=== PATIENT | female | born 1970 | race Caucasian/White ===

== ENCOUNTER → 2020-01-04 14:48 | Outpatient (CLI) | payer OTHER, SELFPAY ==
--- NOTE | ~2020-01-04 | MM_ITS ---
EXAMINATION: MM screening dilia BI w bety HISTORY: Screening mammogram TECHNIQUE: Craniocaudal and mediolateral oblique 3-D tomosynthesis images were obtained and synthetic 2-D images were generated. CAD analysis was submitted and interpreted. COMPARISON: 10/02/2018, 08/19/2017, 09/13/2015 bilateral digital screening mammogram examinations BREAST PARENCHYMAL COMPOSITION: There are scattered areas of fibroglandular density. FINDINGS: There is no evidence of suspicious mass, calcification, or architectural distortion to sugg est malignancy in either breast. There has been no suspicious interval change. IMPRESSION: 1. No mammographic evidence of malignancy. 2. Recommend routine screening mammography in one year. BI-RADS Category 1: Negative Reviewed, dictated and finalized at location A.
== END ==
PROVIDERS: PCP Internal Medicine; Visit Provider Advanced Practice Midwife
DX: Z12.31 Encounter for screening mammogram for malignant neoplasm of breast (principal)
CPT/HCPCS: 77063; 77067

== ENCOUNTER 2020-04-26 03:09 | Outpatient (CLI) | payer OTHER, SELFPAY ==
[2020-04-26 19:22] LABS: SARS-CoV-2 RNA PCR Negative
== END 2020-04-26 03:10 | disposition home or self-care (01) ==
LOC: ANHCOVIDDT 03:09
PROVIDERS: PCP Internal Medicine; Visit Provider Internal Medicine Gastroenterology
DX: Z01.812 Encounter for preprocedural laboratory examination (principal); Z20.822 Contact with and (suspected) exposure to COVID-19
CPT/HCPCS: C9803; U0003; U0005

== ENCOUNTER 2020-04-29 02:35 | Day surgery (SDC) | payer OTHER, SELFPAY ==
[2020-04-21 14:09] VITALS: BMI 29.2
[2020-04-29 09:04] VITALS: BP 146/87; PULSE 107; RESP 18; TEMP 36.7; O2SAT 96
[2020-04-29] MEDS: LACTATED RINGERS 1,000 ML 150 ML IV CONT (09:21)
--- NOTE | 2020-04-29 10:09 | PM.HPGS ---
History of Present Illness History of Present Illness Consent: Risks, benefits, and alternatives have been discussed and questions answered. Patient agrees to proceed with procedure. Chief complaint: Neoplasm Screening Narrative: Alexus Mensah is a 50 year old female here for screening colonoscopy, last one 10 years ago after had diverticulitis. Review of Systems Constitutional: Constitutional: Denies headache(s) and Denies weakness Eyes: Eyes: Denies blurry vision ENT: Reports Normal hearing present, Denies headache(s) and Denies neck pain Cardiovascular: Cardiovascular: Denies chest pain and Denies dyspnea Respiratory: Respiratory: Denies dyspnea Gastrointestinal: Gastrointestinal: Reports no additional gastrointestinal complaints Genitourinary: Genitourinary: Denies dysuria Musculoskeletal: Musculoskeletal: Denies neck pain Integumentary/Breasts: Skin/Breast: Denies dry skin Neurologic: Reports Normal hearing present, Denies headache(s) and Denies weakness Psychiatric: Psychiatric: Denies anxiety Endocrine: Endocrine: Denies change in body appearance Hematologic/Lymphatic: Hematologic/Lymphatic: Denies easy bleeding Allergic/Immunologic: Allergic/Immunologic: Denies urticaria PMF Past Medical History Medical History (Updated 04/29/20 @ 10:09 by Santana Melendez MD) Colon cancer screening fracture Surgical History Surgical History History of bunionectomy Hx of dilation and curettage Family History Family History Father Family history of emphysema Family history of chronic obstructive pulmonary disease Patient's father is Mother Family history of diabetes mellitus in first degree relative Family history of congestive heart failure Patient's mother is Sibling Patient's sister is in good health Patient's brother is in good health Other Family history of arthritis Family history of psoriasis Social History Social History (Updated 12/25/19 @ 13:43 by Shari Brandt CMA) Smoking status: Never smoker Second hand tobacco smoke exposure: No Alcohol intake: never Substance use type: does not use Living arrangements: with family Spiritual care concerns: No Meds Home Medications and Allergies Home Medications Medication Instructions Recorded Confirmed Type fluticasone propionate 50 2 spray NASAL DAILY 05/26/19 04/21/20 History mcg/actuation nasal spray,suspension multivitamin 1 tablet PO DAILY 05/26/19 04/21/20 History montelukast 10 mg tablet 10 mg PO DAILY #90 tablet 03/31/20 04/21/20 Rx Allergies Allergy/AdvReac Type Severity Reaction Status Date / Time No Known Allergies Allergy Verified 04/29/20 09:03 Vital Signs Vital Signs - 24 hr 04/29/20 09:04 Temperature 98.1 F Pulse Rate 107 H Respiratory Rate 18 Blood Pressure 146/87 H Pulse Oximetry 96 Exam Const: General: comfortable and no acute distress HENMT: General nose exam: Normal nares present Eyes: General: appearance normal, both eyes and all related structures Neck: Neck: no JVD Resp: Auscultation: clear to auscultation bilaterally Cardio: Rate: regular rate Rhythm: regular rhythm GI: Inspection: non-distended GI Palp: Yes Soft to palpation Skin: General skin exam: normal color Neuro: General: gait normal Speech: normal speech Extrem: General: normal to inspection Psych: Mental Status: mental status grossly normal Assessment and Plan Assessment and plan (1) Colon cancer screening: Code(s): Z12.11 - Encounter for screening for malignant neoplasm of colon Status: Acute Assessment and Plan: will proceed with colonoscopy
--- NOTE | 2020-04-29 10:12 | WPDANESEPPF ---
Anes - Initial Pre Proc Eval Procedure: Operation Date: 04/29/20 10:00 Proposed Procedures p Screening Colonoscopy - Santana Melendez MD Date/Time: 04/29/20 10:12 Surgeon: Santana Melendez MD Pre Op Diagnosis: Neoplasm Screening Patient Data Age: 50 Gender: F Height: 5 ft 6 in Weight: 88.2 kg Last Vital Signs Temp 98.1 F 04/29/20 09:04 Pulse 107 H 04/29/20 09:04 Resp 18 04/29/20 09:04 BP 146/87 H 04/29/20 09:04 Pulse Ox 96 04/29/20 09:04 Allergies Allergy/AdvReac Type Severity Reaction Status Date / Time No Known Allergies Allergy Verified 04/29/20 09:03 Home Medications Medication Instructions Recorded Confirmed Type fluticasone propionate 50 2 spray NASAL DAILY 05/26/19 04/21/20 History mcg/actuation nasal spray,suspension multivitamin 1 tablet PO DAILY 05/26/19 04/21/20 History montelukast 10 mg tablet 10 mg PO DAILY #90 tablet 03/31/20 04/21/20 Rx Patient hx anesthesia problems: none Family hx anesthesia problems: none PMFSH Past Medical History Medical History (Updated 04/29/20 @ 10:09 by Santana Melendez MD) Colon cancer screening fracture Surgical History Surgical History History of bunionectomy Hx of dilation and curettage Family History Family History Father Family history of emphysema Family history of chronic obstructive pulmonary disease Patient's father is Mother Family history of diabetes mellitus in first degree relative Family history of congestive heart failure Patient's mother is Sibling Patient's sister is in good health Patient's brother is in good health Other Family history of arthritis Family history of psoriasis Social History Social History (Updated 12/25/19 @ 13:43 by Shari Brandt CMA) Smoking status: Never smoker Second hand tobacco smoke exposure: No Alcohol intake: never Substance use type: does not use Living arrangements: with family Spiritual care concerns: No Anes - Eval Final PreProcedure Day of Procedure 04/29/20 10:12 Patient weight: overweight Heart: regular rate and rhythm Lungs: clear to auscultation Airway: Mallampati scale class II Neurological: alert and oriented Last oral intake: >/= 8 hours ASA classification: II Emergent: no Anesthetic plan: proceed Anesthesia type and monitoring: general GIVS and standard monitoring Informed Consent: The patient's anesthetic plan and its attendant risks and benefits were discussed with the patient/family/POA. Questions were solicited and answers provided to the satisfaction of the patient/family/POA.
[2020-04-29 10:30] VITALS: BP 124/74; PULSE 92; RESP 21; O2SAT 96
[2020-04-29 10:40] VITALS: BP 113/70; PULSE 87; RESP 16; O2SAT 98
[2020-04-29 10:50] VITALS: BP 109/75; PULSE 84; RESP 18; O2SAT 99
== END 2020-04-29 11:00 | disposition home or self-care (01) ==
PROVIDERS: PCP Internal Medicine; Visit Provider Internal Medicine Gastroenterology
PROC: 0DJD8ZZ Inspection of Lower Intestinal Tract, Via Natural or Artificial Opening Endoscopic (ICD-10-PCS; CPT 45378; principal; 2020-04-29 10:00)
DX: Z12.11 Encounter for screening for malignant neoplasm of colon (principal); K57.30 Diverticulosis of large intestine without perforation or abscess without bleeding; K64.8 Other hemorrhoids
CPT/HCPCS: 45378; C9803; J2704; J7120; U0003; U0005

== ENCOUNTER → 2021-02-25 00:49 | Outpatient (CLI) | payer OTHER, SELFPAY ==
[2021-02-25 17:30] LABS: SARS-CoV-2 RNA PCR Negative
== END ==
PROVIDERS: PCP Internal Medicine; Visit Provider Internal Medicine
DX: R68.89 Other general symptoms and signs (principal); Z20.822 Contact with and (suspected) exposure to COVID-19
CPT/HCPCS: C9803; U0003; U0005

== ENCOUNTER → 2021-07-31 16:45 | Outpatient (CLI) | payer OTHER, SELFPAY ==
--- NOTE | ~2021-07-31 | MM_ITS ---
EXAMINATION: MM screening dilia BI w bety HISTORY: Screening mammogram TECHNIQUE: Craniocaudal and mediolateral oblique 3-D tomosynthesis images were obtained and synthetic 2-D images were generated. CAD analysis was submitted and interpreted. COMPARISON: 01/04/2020, 10/02/2018, 08/19/2017 bilateral screening mammogram examinations BREAST PARENCHYMAL COMPOSITION: The breasts are almost entirely fatty. FINDINGS: There is no evidence of suspicious mass, calcification, or architectural distortion to sugg est malignancy in either breast. There has been no suspicious interval change. IMPRESSION: 1. No mammographic evidence of malignancy. 2. Recommend routine screening mammography in one year. BI-RADS Category 1: Negative Reviewed, dictated and finalized at location A.
== END ==
PROVIDERS: Visit Provider Internal Medicine
DX: Z12.31 Encounter for screening mammogram for malignant neoplasm of breast (principal)
CPT/HCPCS: 77063; 77067

== ENCOUNTER → 2022-08-06 13:17 | Outpatient (CLI) | payer OTHER, SELFPAY ==
--- NOTE | ~2022-08-06 | MM_ITS ---
EXAMINATION: MM screening dilia BI w bety HISTORY: Screening mammogram TECHNIQUE: Craniocaudal and mediolateral oblique 3-D tomosynthesis images were obtained and synthetic 2-D images were generated. CAD analysis was submitted and interpreted. COMPARISON: July 31, 2021, January 04, 2020, October 02, 2018 bilateral screening mammogram examinati ons BREAST PARENCHYMAL COMPOSITION: The breasts are almost entirely fatty. FINDINGS: Stable low-density circumscribed approximately 4 mm opacity in the subareolar area of the l eft breast since 10/02/2018, not significantly changed. There is no evidence of suspicious mass, calci fication, or architectural distortion to suggest malignancy in either breast. There has been no suspi cious interval change. IMPRESSION: 1. No mammographic evidence of malignancy. 2. Recommend routine screening mammography in one year. BI-RADS Category 1: Negative Reviewed, dictated and finalized at location A.
== END ==
PROVIDERS: PCP Internal Medicine; Visit Provider Internal Medicine
DX: Z12.31 Encounter for screening mammogram for malignant neoplasm of breast (principal)
CPT/HCPCS: 77063; 77067

== ENCOUNTER 2022-10-31 08:19 | Outpatient (CLI) | payer OTHER, SELFPAY ==
--- NOTE | ~2022-10-31 | US_ITS ---
Limited Abdominal Sonogram: Real-time sonographic imaging of the right upper quadrant was performed. Clinical History: Abnormal liver enzyme levels Findings: The liver appears echogenic, with no evidence of solid mass lesion or bile duct dilatation . Large hepatic lobe cyst measures 2 cm in diameter. Additional hepatic cyst adjacent to gallbladder fossa measures 4.7 cm in diameter. Main portal vein demonstrates normal direction of flow. The gallbl adder is well distended, and appears normal with no evidence of gallstone or wall thickening. The com mon bile duct measures 5 mm. The visualized pancreas, aorta, and IVC are unremarkable. Impression: Diffuse fatty infiltration of the liver. Hepatic cysts, as detailed above. Reviewed, dictated and finalized at location M. Impression: Diffuse fatty infiltration of the liver. Hepatic cysts, as detailed above.
== END 2022-10-31 08:20 | disposition home or self-care (01) ==
PROVIDERS: PCP Internal Medicine; Visit Provider Physician Assistant
DX: R74.01 Elevation of levels of liver transaminase levels (principal); K76.0 Fatty (change of) liver, not elsewhere classified; K76.89 Other specified diseases of liver
CPT/HCPCS: 76705